=== PATIENT | female | born 1960 | race Caucasian/White ===

== ENCOUNTER 2024-08-10 07:26 | Observation (INO) ==
[2024-08-10 08:25] LABS: Platelet Count 314 K/uL (130-400)
[2024-08-10 08:52] LABS: INR 0.9 (0.9-1.1); Prothrombin Time 10.2 Seconds (9.0-12.0)
[2024-08-10] MEDS: fentaNYL citrate PF 100 MCG/2 ML VIAL ONE (10:35)
--- NOTE | 2024-08-10 10:55 | History & Physical Report ---
Date of Service August 10, 2024 Assessment & Plan (1) Pneumothorax: (2) COPD (chronic obstructive pulmonary disease): (3) Former tobacco use: Plan Farida is a 64-year-old female with PMH of COPD, HTN, and HLD. She presented on the morning of 08/[address] scan/lung biopsy for TONI FDG positive lung nodule. After biopsy, a postprocedural pneumothorax was noted. While small at first, there was an increase in size after 10 minutes, and patient was taken to the [facility] for a pigtail chest tube placement. # Left pneumothorax Postprocedural pneumothorax during CT scan/lung biopsy on the morning of 08/10 Pigtail placed in the ED Not hypoxic on admission Initial labs ordered Supportive care Pain control Do not give positive airway pressure Supple oxygen as needed to maintain SpO2 >94% Continuous pulse oximetry CXR ordered for noon on 08/10 Repeat CXR on the morning of 08/11 #Former tobacco use Former tobacco cigarette smoker, but quit 3 months ago Patient declines nicotine patch on admission #COPD Trelegy Ellipta #HLD Continue home medication (patient does not know which she takes; working to obtain records) #HTN Monitor BP; normotensive at time of admission Hold home antihypertensive medication for now (working to obtain records) Disposition: Obs - admit to med telemetry Full code Regular diet VTE PPx: SCDs for now History of Present Illness Chief Complaint: Pneumothorax Primary Care Provider: Shaquille Carbajal MD Farida is a 64-year-old female with PMH of COPD, HTN, and HLD. She presented on the morning of 08/[address] scan/lung biopsy for TONI FDG positive lung nodule. After biopsy, a postprocedural pneumothorax was noted. While small at first, there was an increase in size after 10 minutes, and patient was taken to [facility] for a pigtail chest tube placement. Patient received 50 mcg of fentanyl + Tylenol in the [facility]. At time of admission, patient reports that her breathing is okay, but her chest does feel tight. She does endorse SOB at rest. She also endorses left flank/rib pain at the site of the pigtail. No radiation. She rates the pain 7 or 8 out of 10, and characterizes it as a sharp/stabbing pain. It is not better or worse with movements or deep breaths. NKDA. Patient reports that she took her regular medicine this morning which includes blood pressure and high cholesterol medications; patient is not sure of the names or dosage of medicati on she takes. She also takes Trelegy Ellipta for her COPD, and has an albuterol inhaler as needed. She denies prior history of asthma. No sick contacts to her knowledge. She is not on supplemental oxygen at baseline or CPAP at night. She denies prior history of DVT/PE. Not on blood thinners. Patient does have remote history of pneumonia requiring supplemental oxygen last November 2023. Patient follows with Dr. Haroon Goodman ([facility]) for Pulmonology. She goes to [facility] for her PCP needs, but reports that she mainly just follows with specialists as needed. Patient is a former tobacco cigarette smoker, but quit 3 months ago. She used to smoke 1 to 2 packs/day, but also had a period of time where she quit for 13 years. Patient lives by herself; . She denies any recent alcohol use, smoking, or tobacco use. Patient is hypertensive at 172/94 at time of admission; SpO2 94% on RA. ROS: Patient endorses left flank/rib pain, chest tightness, SOB at rest, MORGAN (at baseline), and sweating (which patient attributes to receiving fentanyl). Patient denies fever, dizziness, chest pain, pleuritic CP, cough, hemoptysis, abdominal pain, N/V/D, or changes in urinary/bowel habits. Allergies Allergy/AdvReac Type Severity Reaction Status Date / Time No Known Allergies Allergy Unverified 08/10/24 11:38 Home Medications Medication Instructions Recorded Confirmed Type albuterol sulfate 90 mcg/actuation 1 puff inhalation QID PRN 08/10/24 08/10/24 History aerosol inhaler Shortness Of Breath Or Wheezing atorvastatin 40 mg tablet 40 mg PO DAILY 08/10/24 08/10/24 History losartan 100 mg tablet 100 mg PO DAILY 08/10/24 08/10/24 History Past Med/Surg History Problem List (Updated 08/10/24 @ 11:25 by Armen Rose PA-C) Former tobacco use COPD (chronic obstructive pulmonary disease) Pneumothorax Social History Smoking Status: Current every day smoker Preferred Language: Ghanaian Communication Ability: Effective Jig And Fixture Repairer Required: No Beliefs That Will Affect Care: None Feels Safe at Home: Yes Review of Systems Review of Systems: See HPI above Physical Exam Physical Exam: General: Mild physical distress secondary to left flank/rib pain; patient's daughter (Shawna) present at the bedside; non-toxic appearing; well-nourished; cooperative; SpO2 94% on RA HEENT: normocephalic, atraumatic; no scleral icterus; PERRLA; vision and hearing grossly intact Neck: supple; no lymphadenopathy; trachea midline Skin: warm, dry without signs of tenting; no cyanosis; no rashes, bruising, lesions, or erythema noted CV: chest wall NTP; RRR; S1/S2 normal; no murmurs/rubs/gallops; pulses intact and symmetric at radial, DP, and PT Lungs: no acute respiratory distress; symmetrical chest wall expansion; clear br eath sounds across all lung sherwood w/o adventitious sounds; no wheezing ABD: Soft, NTP; BS present; no rebound/guarding; no distention MSK: no tics or fasciculations; no edema noted in the LEs b/l, nonerythematous Neuro: A&Ox3; normal mood and affect; fluent speech; no focal deficits; sensation grossly intact in the LEs b/l Results & Data Results & Data Vital Signs (Past 12 Hours) Vital Signs Temp Resp BP Pulse Ox O2 Del Method 08/10/24 08:02 36.9 C 18 144/68 H 96 Room Air Code Status & VTE Plan Code Status Full code VTE Prophylaxis Plan VTE Prophylaxis will be ordered: Yes Supervising Physician Co-Signing Physician Notes The patient was seen by me. The chart was reviewed. Case discussed with KARIE Carcamo. Agree with assessment and plan PG Care Time/CCT Total # of Minutes Spent Total Time Spent with Patient: Total time spent is greater than 50% in coordination of care (as documented) at patient's floor/unit and/or counseling patient: [place] [address] INT INP/OBS CARE 3/75MIN Patient Type New Medical Decision Making High Complexity Diagnoses Pneumothorax J93.9 COPD (chronic obstructive pulmonary disease) J44.9 Former tobacco use Z87.891
[2024-08-10] MEDS: ACETAMINOPHEN 1000 MG/100 ML IV IV ONE (11:00)
[2024-08-10] MEDS: ONDANSETRON INJ 2 MG/ML 2 ML VIAL ONE (11:30)
[2024-08-10] MEDS ORDERED: ACETAMINOPHEN 325 MG TAB PO PRN (11:34)
[2024-08-10] MEDS ORDERED: ALBUTEROL HFA 8 GM INHALER INH PRN (13:10)
--- NOTE | 2024-08-10 14:22 | CT Scan Report ---
CT-guided left lung nodule core biopsy and left pleural pigtail catheter placement INDICATION: Left upper lobe FDG avid 1 cm lung nodule; tobacco abuse/COPD PROCEDURE: Procedure and risks were explained. Informed consent was obtained. A final timeout was com pleted. The patient was placed supine and then in a right lateral decubitus position on the CT exam t able. The left lateral thorax was prepped and draped in sterile fashion. 1% lidocaine was utilized fo r skin anesthesia. Utilizing CT guidance, a 19-gauge coaxial needle was advanced into the 1 cm left upper lobe lung nodu le. A 20-gauge core biopsy needle was advanced, and 3 cores were obtained and given to the pathologis t. The coaxial needle was removed and Band-Aid applied. Post-CT imaging demonstrated a small left pne umothorax. 10 minute delayed imaging demonstrated increase in the left pneumothorax, and therefore it was decided to place a left pleural pigtail catheter. The left chest was prepped and draped again in sterile fashion. 1% lidocaine was utilized for skin anesthesia. Utilizing CT guidance, an 8 Portuguese l ocking pigtail catheter was advanced into the left pleural space. The pigtail was sutured to the skin with 2-0 silk and placed to 20 cm H2O wall suction. Post pigtail placement scan demonstrated adequat e pigtail catheter position with reduction of the pneumothorax size. The patient tolerated the proced ure well. She received 25 mcg fentanyl IV. Arrangements will be made for the patient to be admitted f or observation/chest tube management and the referring physician was notified. A chest x-ray will be performed at noon and vital signs were monitored on the floor. IMPRESSION: Left upper lobe lung nodule core biopsy with subsequent pneumothorax and left pleural pigtail cathete r placement. See above for further details. Performed, dictated, and signed by Fer Loza PA-C; to be co-signed by Dr. Carlito Cary. Electronically signed by: Carlito Cary M.D. 08/10/2024 4:06 PM
[2024-08-10] MEDS: MoRPHine SULFATE 2 MG/ML CARP IV PRN ×2 (15:02→19:27)
--- NOTE | 2024-08-10 15:28 | XRay Report ---
XR chest 1V portable CLINICAL HISTORY: s/p left lung bx/pleural pigtail placement TECHNIQUE: Single frontal radiograph of the chest was obtained. Comparison: Comparison is made to lung biopsy 08/10/2024 FINDINGS: Left chest tube is seen. The cardiomediastinal silhouette is normal. The lungs are clear. No evidence of pleural effusion or pneumothorax. IMPRESSION: Left chest tube without evidence of remaining pneumothorax in this patient who had a small pneumothor ax status post lung biopsy. ACT 112: Negative or not required by law. Electronically signed by: Carlito Cary M.D. 08/10/2024 3:27 PM
--- NOTE | 2024-08-10 15:32 | Pulmonary Consultation ---
Date of Consultation August 10, 2024 Assessment & Plan (1) Pulmonary nodule: (2) Pneumothorax: Plan Impression: 64-year-old female with COPD, severity uncertain as PFTs are not available here status post percutaneous biopsy of a lung nodule with resultant pneumothorax. She had a small bore pigtail placed by interventional radiology and has been admitted to the medicine service. Follow-up imaging demonstrated resolution of the pneumothorax. Recommendations: 1. Postprocedural pneumothorax: The patient will be placed on waterseal. Will repeat chest x-ray in a.m.. If the lung is up the tube can likely be removed and the patient be dismissed from the hospital. She should avoid air travel for the next 5 to 7 days. She can follow-up with her pulmonary group at [facility]. 2. Pulmonary nodule the patient will need to follow-up with her outpatient pulmonary group for results of the biopsy. 3. COPD: Not bronchospastic currently. Continue conservative management at this point in time. Thanks for the opportunity participating the care of this patient. Feel free to contact us with questions or concerns History of Present Illness Attending Physician: Lisandro Cabral MD History of Present Illness Asked by hospitalist to assist in evaluation management patient's status post pneumothorax after biopsy for lung nodule. The patient is followed by pulmonary [facility]. The patient is a 64-year-old female. We have limited medical records from her. Reportedly she has COPD. She is not oxygen dependent at baseline. She reportedly was found to have a pulmonary nodule. Imaging studies are not available to review from the outside facility. She was referred to interventional radiology here and underwent a percutaneous CT-guided biopsy which resulted in a pneumothorax requiring placement of a small bore pigtail catheter. The patient has been admitted to the hospitalist service for management. Follow-up chest x-ray demonstrated resolution of the pneumothorax. Pulmonary was consulted for additional management. The patient is complaining of some slight pain at the tube insertion site. She is not having any breathing issues. No cough or sputum production. Allergies Allergy/AdvReac Type Severity Reaction Status Date / Time meperidine [From Demerol] AdvReac GI upset Unverified 08/10/24 13:12 Home Medications Medication Instructions Recorded Confirmed Type albuterol sulfate 90 mcg/actuation 1 puff inhalation QID PRN 08/10/24 08/10/24 History aerosol inhaler Shortness Of Breath Or Wheezing atorvastatin 40 mg tablet 40 mg PO DAILY 08/10/24 08/10/24 History losartan 100 mg tablet 100 mg PO DAILY 08/10/24 08/10/24 History Patient History Social History Smoking Status: Current every day smoker Preferred Language: Malay Communication Ability: Effective Radio News Writer Required: No Beliefs That Will Affect Care: None Feels Safe at Home: Yes Review of Systems Review of Systems: All systems reviewed & are unremarkable except as noted in Subjective Physical Exam Constitutional: WD/WN, vitals as above Neck: trachea midline, no thyromegaly Respiratory: normal respiratory effort, lungs clear to auscultation Cardiovascular: RRR, no murmur, no edema Gastrointestinal (Abdomen): normal bowel sounds, soft, nontender, no hepatosplenomegaly Musculoskeletal: Extremities: extremities normal to inspection Skin: no rashes, warm and dry Neurologic: Nonfocal exam Lymphatic: no cervical lymphadenopathy Results & Data Results & Data Vital Signs (Past 12 Hours) Vital Signs Temp Pulse Pulse Resp BP Pulse Ox O2 Del Method 08/10/24 15:05 71 08/10/24 14:47 Nasal Cannula 08/10/24 14:01 64 18 153/88 H 99 Nasal Cannula 08/10/24 13:20 64 18 143/61 H 99 Nasal Cannula 08/10/24 12:50 68 18 142/64 H 99 Nasal Cannula 08/10/24 12:20 66 20 156/100 H 99 Nasal Cannula 08/10/24 11:50 66 20 148/99 H 99 Nasal Cannula 08/10/24 11:35 74 20 141/83 H 92 Room Air 08/10/24 11:20 83 20 168/91 H 93 Room Air 08/10/24 11:05 77 20 172/94 H 94 Room Air 08/10/24 10:50 36.7 C 79 22 170/78 H 94 Room Air 08/10/24 08:02 36.9 C 18 144/68 H 96 Room Air O2 Flow Rate 08/10/24 15:05 08/10/24 14:47 2 08/10/24 14:01 2 08/10/24 13:20 2 08/10/24 12:50 2 08/10/24 12:20 2 08/10/24 11:50 2 08/10/24 11:35 08/10/24 11:20 08/10/24 11:05 08/10/24 10:50 08/10/24 08:02 Critical Care Results & Data Vital Signs (Past 12 Hours) Vital Signs Temp Pulse Pulse Resp BP Pulse Ox O2 Del Method 08/10/24 15:05 71 08/10/24 14:47 Nasal Cannula 08/10/24 14:01 64 18 153/88 H 99 Nasal Cannula 08/10/24 13:20 64 18 143/61 H 99 Nasal Cannula 08/10/24 12:50 68 18 142/64 H 99 Nasal Cannula 08/10/24 12:20 66 20 156/100 H 99 Nasal Cannula 08/10/24 11:50 66 20 148/99 H 99 Nasal Cannula 08/10/24 11:35 74 20 141/83 H 92 Room Air 08/10/24 11:20 83 20 168/91 H 93 Room Air 08/10/24 11:05 77 20 172/94 H 94 Room Air 08/10/24 10:50 36.7 C 79 22 170/78 H 94 Room Air 08/10/24 08:02 36.9 C 18 144/68 H 96 Room Air O2 Flow Rate 08/10/24 15:05 08/10/24 14:47 2 08/10/24 14:01 2 08/10/24 13:20 2 08/10/24 12:50 2 08/10/24 12:20 2 08/10/24 11:50 2 08/10/24 11:35 08/10/24 11:20 08/10/24 11:05 08/10/24 10:50 08/10/24 08:02 Lab & Micro Results (Past 24 Hours) RBC Pending 08/10/24 WBC Pending 08/10/24 Hgb Pending 08/10/24 Hct Pending 08/10/24 MCV Pending 08/10/24 MCH Pending 08/10/24 MCHC Pending 08/10/24 Plt Count 314 K/uL (130-400) 08/10/24 Na Pending 08/10/24 K Pending 08/10/24 Cl Pending 08/10/24 CO2 Pending 08/10/24 Anion Gap Pending 08/10/24 BUN Pending 08/10/24 Creatinine Pending 08/10/24 BUN/Creatinine Ratio Pending 08/10/24 Glu Pending 08/10/24 Ca Pending 08/10/24 Total Bilirubin Pending 08/10/24 AST Pending 08/10/24 ALT Pending 08/10/24 Alkaline Phosphatase Pending 08/10/24 TP Pending 08/10/24 Albumin Pending 08/10/24 Globulin Pending 08/10/24 Albumin/Globulin Ratio Pending 08/10/24 Calcium Level Pending 08/10/24 15:16 Prothromb Time International Ratio 0.9 (0.9-1.1) 08/10/24 08:0 0 Diagnostic Findings (Past 24 Hours) Thoracentesis CT 08/10/24 00:00 CT-guided left lung nodule core biopsy and left pleural pigtail catheter placement INDICATION: Left upper lobe FDG avid 1 cm lung nodule; tobacco abuse/COPD PROCEDURE: Procedure and risks were explained. Informed consent was obtained. A final timeout was completed. The patient was placed supine and then in a right lateral decubitus position on the CT exam table. The left lateral thorax was prepped and draped in sterile fashion. 1% lidocaine was utilized for skin anesthesia. Utilizing CT guidance, a 19-gauge coaxial needle was advanced into the 1 cm left upper lobe lung nodule. A 20-gauge core biopsy needle was advanced, and 3 cores were obtained and given to the pathologist. The coaxial needle was removed and Band-Aid applied. Post-CT imaging demonstrated a small left pneumothorax. 10 minute delayed imaging demonstrated increase in the left pneumothorax, and therefore it was decided to place a left pleural pigtail catheter. The left chest was prepped and draped again in sterile fashion. 1% lidocaine was utilized for skin anesthesia. Utilizing CT guidance, an 8 Slovak locking pigtail catheter was advanced into the left pleural space. The pigtail was sutured to the skin with 2-0 silk and placed to 20 cm H2O wall suction. Post pigtail placement scan demonstrated adequate pigtail catheter position with reduction of the pneumothorax size. The patient tolerated the procedure well. She received 25 mcg fentanyl IV. Arrangements will be made for the patient to be admitted for observation/chest tube management and the referring physician was notified. A chest x-ray will be performed at noon and vital signs were monitored on the larisa or. IMPRESSION: Left upper lobe lung nodule core biopsy with subsequent pneumothorax and left pleural pigtail catheter placement. See above for further details. Performed, dictated, and signed by Fer Loza PA-C; to be co-signed by Dr. Carlito Cary. Lung Biopsy CT 08/10/24 09:00 CT-guided left lung nodule core biopsy and left pleural pigtail catheter placement INDICATION: Left upper lobe FDG avid 1 cm lung nodule; tobacco abuse/COPD PROCEDURE: Procedure and risks were explained. Informed consent was obtained. A final timeout was completed. The patient was placed supine and then in a right lateral decubitus position on the CT exam table. The left lateral thorax was prepped and draped in sterile fashion. 1% lidocaine was utilized for skin anesthesia. Utilizing CT guidance, a 19-gauge coaxial needle was advanced into the 1 cm left upper lobe lung nodule. A 20-gauge core biopsy needle was advanced, and 3 cores were obtained and given to the pathologist. The coaxial needle was removed and Band-Aid applied. Post-CT imaging demonstrated a small left pneumothorax. 10 minute delayed imaging demonstrated increase in the left pneumothorax, and therefore it was decided to place a left pleural pigtail catheter. The left chest was prepped and draped again in sterile fashion. 1% lidocaine was utilized for skin anesthesia. Utilizing CT guidance, an 8 Slovak locking pigtail catheter was advanced into the left pleural space. The pigtail was sutured to the skin with 2-0 silk and placed to 20 cm H2O wall suction. Post pigtail placement scan demonstrated adequate pigtail catheter position with reduction of the pneumothorax size. The patient tolerated the procedure well. She received 25 mcg fentanyl IV. Arrangements will be made for the patient to be admitted for observation/chest tube management and the referring physician was notified. A chest x-ray will be performed at noon and vital signs were monitored on the floor. IMPRESSION: Left upper lobe lung nodule core biopsy with subsequent pneumothorax and left pleural pigtail catheter placement. See above for further details. Performed, dictated, and signed by Fer Loza PA-C; to be co-signed by Dr. Carlito Cary. Chest X-Ray 08/10/24 12:00 XR chest 1V portable CLINICAL HISTORY: s/p left lung bx/pleural pigtail placement TECHNIQUE: Single frontal radiograph of the chest was obtained. Comparison: Comparison is made to lung biopsy 08/10/2024 FINDINGS: Left chest tube is seen. The cardiomediastinal silhouette is normal. The lungs are clear. No evidence of pleural effusion or pneumothorax. IMPRESSION: Left chest tube without evidence of remaining pneumothorax in this patient who had a small pneumothorax status post lung biopsy. ACT 112: Negative or not required by law. Electronically signed by: Carlito Cary M.D. 08/10/2024 3:27 PM RT Ventilator Mngmt (Last Documented) Ventilator Ordered Settings Respiratory Rate 18 08/10/24 14:01 Ventilator - PT Measurements Respiratory Rate 18 PG Care Time/CCT Total # of Minutes Spent Total Time Spent with Patient: Total time spent is greater than 50% in coordination of care (as documented) at patient's floor/unit and/or counseling patient: Coding Level of Care Code 84969 INT INP/OBS CARE 2/55MIN Diagnoses Pulmonary nodule R91.1 Pneumothorax J93.9
[2024-08-10 15:40] LABS: Basophils # (auto) 0.06 K/uL (0.00-0.20); Basophils % (auto) 0.5 %; Eosinophils # (auto) 0.06 K/uL (0.00-0.50); Eosinophils % (auto) 0.5 %; Hematocrit (blood only) 38.7 % (37.0-47.0); Hemoglobin 13.1 g/dl (12.0-16.0); Immature Granulocytes # (auto) 0.06 K/uL (0.01-0.20); Immature Granulocytes % (auto) 0.5 %; Lymphocytes # (auto) 1.32 K/uL (1.20-3.40); Lymphocytes % (auto) 11.6 %; Mean Corpuscular Hemoglobin 30.6 pg (25.0-34.0); Mean Corpuscular Hgb Conc 33.9 g/dL (32.0-36.0); Mean Corpuscular Volume 90.4 fL (80.0-100.0); Monocytes # (auto) 0.59 K/uL (0.11-0.59); Monocytes % (auto) 5.2 %; Neutrophils # (auto) 9.27 K/uL (1.40-6.50); Neutrophils % (auto) 81.7 %; Platelet Count 327 K/uL (130-400); RDW Coefficient of Variation 11.8 % (11.5-14.5); RDW Standard Deviation 38.8 fL (36.4-46.3); Red Blood Count 4.28 M/uL (4.20-5.40); White Blood Count 11.36 K/ul (4.8-10.8)
[2024-08-10 15:47] LABS: Albumin Globulin Ratio 1.8 (0.9-2); Albumin Level 4.1 gm/dl (3.4-5.0); BUN Creatinine Ratio 11.2 (10-20); Bilirubin,Total 0.3 mg/dl (0.2-1.0); Calcium 9.4 mg/dl (8.6-10.3); Creatinine Clr Calc Pharmacy 35.7 ml/min; Globulin 2.3 gm/dl (2.5-4.0); Potassium 4.7 mmol/L (3.5-5.1); Total Protein 6.4 gm/dl (6.0-8.3)
[2024-08-10 15:59] LABS: Prothrombin Time 10.5 Seconds (9.0-12.0)
[2024-08-10] MEDS: MoRPHine SULFATE 2 MG/ML CARP IV STA (17:52)
[2024-08-10] MEDS: ONDANSETRON INJ 2 MG/ML 2 ML VIAL IV PRN (20:19)
[2024-08-10] MEDS: hydrALAZINE HCL 20 MG/ML VIAL IV PRN (20:19)
[2024-08-10] MEDS: MELATONIN 3 MG TAB PO PRN (22:49)
[2024-08-11] MEDS ORDERED: HYDROmorphone INJ 0.5 MG/0.5 ML SYR IV PRN (02:54)
[2024-08-11] MEDS ORDERED: ACETAMINOPHEN 500 MG TAB PO PRN (02:54)
[2024-08-11] MEDS: HYDROmorphone INJ 0.5 MG/0.5 ML SYR IV PRN (03:06)
[2024-08-11 06:33] LABS: Hematocrit (blood only) 41.6 % (37.0-47.0); Hemoglobin 14.2 g/dl (12.0-16.0); Mean Corpuscular Hemoglobin 30.9 pg (25.0-34.0); Mean Corpuscular Hgb Conc 34.1 g/dL (32.0-36.0); Mean Corpuscular Volume 90.4 fL (80.0-100.0); Mean Platelet Volume 10.1 fL (9.4-12.4); Platelet Count 342 K/uL (130-400); RDW Coefficient of Variation 11.8 % (11.5-14.5); RDW Standard Deviation 38.5 fL (36.4-46.3); White Blood Count 10.58 K/ul (4.8-10.8)
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
[2024-08-11 07:32] LABS: BUN Creatinine Ratio 16.9 (10-20); Calcium 9.8 mg/dl (8.6-10.3); Creatinine Clr Calc Pharmacy 53.9 ml/min; Potassium 4.6 mmol/L (3.5-5.1)
--- NOTE | 2024-08-11 07:46 | XRay Report ---
EXAM: XR chest 1V portable CLINICAL HISTORY: PTX. TECHNIQUE: An X-ray image of the chest was obtained in AP projection. COMPARISON: No prior studies are available for comparison. FINDINGS: Pulmonary Parenchyma: Bilateral hyper transradiant/hyperinflated lung sherwood are suggestive of underlying chronic obstructive airway disease. Bilateral prominent bronchovascular/interstitial markings. No evidence of consolidation collapse or pulmonary nodule seen. No evidence of pleural effusion or pleural thickening. Heart and Mediastinum: Heart size and shape are normal. No mediastinal widening or masses. No hilar or mediastinal lymphadenopathy. Bony Thorax: Bony thorax appears intact without fractures or deformities. Soft Tissues: Soft tissues overlying the chest wall are unremarkable. IMPRESSION: 1. No evidence of acute cardiopulmonary abnormality seen. 2. Bilateral prominent bronchovascular/interstitial markings, bronchitis. 3. Bilateral hyper transradiant hyperinflated lung sherwood. Mild chronic obstructive airway disease. Suggest clinical correlation. Electronically signed by Lenora Clifford 08-11-2024 07:46 AM
[2024-08-11] MEDS: PROMETHAZINE 12.5 MG/50.5 ML BAG IV STA (08:22)
[2024-08-11] MEDS: ATORVASTATIN 40 MG TAB PO SCH (08:51)
[2024-08-11] MEDS: LOSARTAN POTASSIUM 50 MG TAB PO SCH (08:51)
--- NOTE | 2024-08-11 12:15 | Discharge Summary ---
Discharge Summary Date of Service August 11, 2024 Principal Dx & Hospital Course #1 = Principal Diagnosis (1) Pneumothorax: Left side. Occurred after biopsy procedure of left upper lobe mass. Now resolved after placement of left sided chest tube. Appreciate pulmonology consultation and recommendations. The pneumothorax has resolved and the chest tube has been removed (2) COPD (chronic obstructive pulmonary disease): Stable. Continue current medical management (3) Former tobacco use: The patient denies any further tobacco use (4) Essential hypertension: Stable. Continue current medical management. Intravenous hydralazine as needed for elevated blood pressure Plan Home today, August 11. She will follow-up with her PCP or oncologist to discuss pathology report findings Admission HPI Per Admitting Provider Farida is a 64-year-old female with PMH of COPD, HTN, and HLD. She presented on the morning of 08/[address] scan/lung biopsy for TONI FDG positive lung nodule. After biopsy, a postprocedural pneumothorax was noted. While small at first, there was an increase in size after 10 minutes, and patient was taken to the [facility] for a pigtail chest tube placement. Patient received 50 mcg of fentanyl + Tylenol in the [facility]. At time of admission, patient reports that her breathing is okay, but her chest does feel tight. She does endorse SOB at rest. She also endorses left flank/rib pain at the site of the pigtail. No radiation. She rates the pain 7 or 8 out of 10, and characterizes it as a sharp/stabbing pain. It is not better or worse with movements or deep breaths. NKDA. Patient reports that she took her regular medicine this morning which includes blood pressure and high cholesterol medications; patient is not sure of the names or dosage of medication she takes. She also takes Trelegy Ellipta for her COPD, and has an albuterol inhaler as needed. She denies prior history of asthma. No sick contacts to her knowledge. She is not on supplemental oxygen at baseline or CPAP at night. She denies prior history of DVT/PE. Not on blood thinners. Patient does have remote history of pneumonia requiring supplemental oxygen last November 2023. Patient follows with Dr. Haroon Goodman ([place]) for Pulmonology. She goes to [facility] for her PCP needs, but reports that she mainly just follows with specialists as needed. Patient is a former tobacco cigarette smoker, but quit 3 months ago. She used to smoke 1 to 2 packs/day, but also had a period of time where she quit for 13 years. Patient lives by herself; . She denies any recent alcohol use, smoking, or tobacco use. Patient is hypertensive at 172/94 at time of admission; SpO2 94% on RA. ROS: Patient endorses left flank/rib pain, chest tightness, SOB at rest, MORGAN (at baseline), and sweating (which patient attributes to receiving fentanyl). Patient denies fever, dizziness, chest pain, pleuritic CP, cough, hemoptysis, abdominal pain, N/V/D, or changes in urinary/bowel habits. Discharge Exam General-alert and oriented x3, no fever, no chills HEENT-head atraumatic and normocephalic, pupils equal and reactive to light, extraocular muscles intact Neck-no lymphadenopathy or thyromegaly, trachea midline Chest-diminished breath sounds bilaterally. No rales, wheezing or rhonchi Cardiac-regular rate and rhythm, normal S1 and S2 Abdomen-normal bowel sounds, no hepatosplenomegaly Extremities-no cyanosis, clubbing, or edema Neuro-cranial nerves II through XII intact, motor and sensory function within normal limits, strength symmetrical, no focal deficits Psych-normal affect, normal mood Discharge Plan Discharge Items Patient Disposition: Home - Self-Care Reason For Visit: Solitary pulmonary nodule Discharge Diagnosis: Left lung pneumothorax after biopsy procedure Activity: Resume your previous activity Non-emergency contact: Primary Care Provider and Oncologist Call non-emergency contact if: your symptoms worsen Follow-up/Referrals: Shaquille Carbajal MD [Primary Care Provider] - Diet: Regular and Heart Healthy Addtl Attending Provider Instructions: Follow-up with PCP or oncologist for discussion of biopsy results Pending Studies at Discharge: Yes Studies:: Pathology report from lung biopsy Stand-Alone Forms: My [facility], Smoking Cessation Medications and DC Order Prescriptions: Continued losartan 100 mg Tablet 100 mg PO DAILY atorvastatin 40 mg Tablet 40 mg PO DAILY albuterol sulfate 90 mcg/actuation Hfa Aerosol Inhaler 1 puff INHALATION QID PRN (Reason: Shortness Of Breath Or Wheezing) Discharge Orders: Discharge Order (Routine); Ordered 08/11/24 Ordered By: Lisandro Cabral Admission Data Admit Date/Time: 08/10/24 11:36 Attending Provider: Lisandro Cabral Admit Provider: Lisandro Cabral Primary Care Provider: Shaquille Carbajal Other Providers: Tung Sandoval; Tal Bynum; Shad Robles; Branden White; Tyesha Soares; Tika Garcia; Dale Goodwin; Judith [facility] Hospital Stay Data Consultations 08/10/24 14:49 Consult Pulmonology Routine Procedures Performed Operation Date: 08/10/24 09:00 <No data on this case meets the specified criteria> Diagnostic Imagining Performed 08/10/24 IR thoracentesis w/tube CT Routine 08/10/24 09:00 IR biopsy lung LT CT Routine Pending Results Patient Have Any Pending Studies at Discharge: Yes Discharge Instructions Given to Patient (Per Discharging Provider) Follow-up with PCP or oncologist for discussion of biopsy results Total Time Total Time Spent Total Time Spent (In Minutes): 45 minutes Coding Level of Care Code 08420 INP/OBS DISCH >30 MIN Diagnoses Pneumothorax J93.9 COPD (chronic obstructive pulmonary disease) J44.9 Former tobacco use Z87.891 Essential hypertension I10
== END 2024-08-11 13:52 | disposition home or self-care (01) ==
LOC: 2W 07:26